=== PATIENT | female | born 1940 | race Caucasian/White ===

== ENCOUNTER 2020-12-15 06:00 | Outpatient (RCR) | payer MEDICARE, SELFPAY | END 2021-01-07 23:59 | disposition home or self-care (01) | LOC: MOT 06:00 | PROVIDERS: PCP Family Medicine; Referring Provider Orthopaedic Surgery Hand Surgery; Visit Provider Orthopaedic Surgery Hand Surgery | DX: M25.641 Stiffness of right hand, not elsewhere classified (principal) | CPT/HCPCS: 97018; 97110; 97140; 97166 ==

== ENCOUNTER 2021-01-08 06:00 | Outpatient (RCR) | payer MEDICARE, SELFPAY | END 2021-02-06 23:59 | disposition home or self-care (01) | LOC: MOT 06:00 | PROVIDERS: PCP Family Medicine; Referring Provider Orthopaedic Surgery Hand Surgery; Visit Provider Orthopaedic Surgery Hand Surgery | DX: M25.641 Stiffness of right hand, not elsewhere classified (principal) | CPT/HCPCS: 97018; 97110; 97140 ==

== ENCOUNTER 2022-08-19 06:00 | Outpatient (RCR) | payer MEDICARE, SELFPAY | END 2022-09-08 23:59 | disposition home or self-care (01) | LOC: MOT 06:00 | PROVIDERS: PCP Family Medicine; Visit Provider Physician Assistant | DX: M25.641 Stiffness of right hand, not elsewhere classified (principal) | CPT/HCPCS: 97110; 97140; 97166 ==

== ENCOUNTER 2022-09-09 06:00 | Outpatient (RCR) | payer MEDICARE, SELFPAY | END 2022-10-09 23:59 | disposition home or self-care (01) | LOC: MOT 06:00 | PROVIDERS: PCP Family Medicine; Visit Provider Physician Assistant | DX: M25.641 Stiffness of right hand, not elsewhere classified (principal) | CPT/HCPCS: 97035; 97110; 97140 ==

== ENCOUNTER 2022-10-10 06:00 | Outpatient (RCR) | payer MEDICARE, SELFPAY | END 2022-11-09 23:59 | disposition home or self-care (01) | LOC: MOT 06:00 | PROVIDERS: PCP Family Medicine; Visit Provider Physician Assistant | DX: M25.641 Stiffness of right hand, not elsewhere classified (principal) | CPT/HCPCS: 97018; 97035; 97110; 97140 ==

== ENCOUNTER 2022-11-10 06:00 | Outpatient (RCR) | payer MEDICARE, SELFPAY | END 2022-12-07 23:59 | disposition home or self-care (01) | LOC: MOT 06:00 | PROVIDERS: PCP Family Medicine; Visit Provider Physician Assistant | DX: M20.011 Mallet finger of right finger(s) (principal) | CPT/HCPCS: 97035; 97110; 97140 ==

== ENCOUNTER 2022-12-08 06:00 | Outpatient (RCR) | payer MEDICARE, SELFPAY | END 2023-01-07 23:59 | disposition home or self-care (01) | LOC: MOT 06:00 | PROVIDERS: Visit Provider Family Medicine | DX: Z47.1 Aftercare following joint replacement surgery (principal); Z96.642 Presence of left artificial hip joint | CPT/HCPCS: 97110; 97140; 97166 ==

== ENCOUNTER 2022-12-22 06:00 | Outpatient (RCR) | payer MEDICARE, SELFPAY | END 2023-01-07 23:59 | disposition home or self-care (01) | LOC: MPT 06:00 | PROVIDERS: Visit Provider Physician Assistant | DX: Z96.642 Presence of left artificial hip joint (principal) | CPT/HCPCS: 97110; 97116; 97162 ==

== ENCOUNTER 2023-01-08 06:00 | Outpatient (RCR) | payer MEDICARE, SELFPAY | END 2023-02-06 23:59 | disposition home or self-care (01) | LOC: MOT 06:00 | PROVIDERS: Visit Provider Family Medicine | DX: M19.011 Primary osteoarthritis, right shoulder (principal) | CPT/HCPCS: 97035; 97110; 97140 ==

== ENCOUNTER 2023-01-08 06:00 | Outpatient (RCR) | payer MEDICARE, SELFPAY | END 2023-02-06 23:59 | disposition home or self-care (01) | LOC: MPT 06:00 | PROVIDERS: Visit Provider Physician Assistant | DX: Z47.89 Encounter for other orthopedic aftercare (principal) | CPT/HCPCS: 97110; 97112 ==

== ENCOUNTER 2023-01-13 13:02 | Outpatient (RCR) | payer MEDICARE, SELFPAY | END 2023-02-06 23:59 | disposition home or self-care (01) | LOC: SST 13:02 | PROVIDERS: Visit Provider Otolaryngology | DX: R49.0 Dysphonia (principal) | CPT/HCPCS: 92524; 92610 ==

== ENCOUNTER 2023-02-07 06:00 | Outpatient (RCR) | payer MEDICARE, SELFPAY | END 2023-03-09 23:59 | disposition home or self-care (01) | LOC: SST 06:00 | PROVIDERS: Visit Provider Otolaryngology | DX: R49.0 Dysphonia (principal) | CPT/HCPCS: 92507 ==

== ENCOUNTER 2023-03-10 06:00 | Outpatient (RCR) | payer MEDICARE, SELFPAY | END 2023-03-10 23:59 | disposition home or self-care (01) | LOC: SST 06:00 | PROVIDERS: Visit Provider Otolaryngology | DX: R49.0 Dysphonia (principal) | CPT/HCPCS: 92507 ==

== ENCOUNTER → 2023-06-14 10:00 | Outpatient (BNVA) | payer MEDICARE, SELFPAY | PROVIDERS: PCP Family Medicine; Visit Provider Nurse Practitioner Family | DX: R07.81 Pleurodynia (principal) | CPT/HCPCS: 71100 ==

== ENCOUNTER → 2023-12-08 18:04 | Outpatient (BNVA) | payer MEDICARE, SELFPAY | PROVIDERS: PCP Family Medicine; Visit Provider Emergency Medicine | DX: R10.9 Unspecified abdominal pain (principal) | CPT/HCPCS: 81000; 87077; 87086; 87184 ==

== ENCOUNTER 2024-02-28 06:00 | Outpatient (RCR) | payer MEDICARE, SELFPAY | END 2024-03-09 23:59 | disposition home or self-care (01) | LOC: MPT 06:00 | PROVIDERS: Visit Provider Physician Assistant Medical | DX: M25.552 Pain in left hip (principal) | CPT/HCPCS: 97110; 97162 ==

== ENCOUNTER 2024-03-10 06:00 | Outpatient (RCR) | payer MEDICARE, SELFPAY | END 2024-04-08 23:59 | disposition home or self-care (01) | LOC: MPT 06:00 | PROVIDERS: Visit Provider Physician Assistant Medical | DX: M25.552 Pain in left hip (principal) | CPT/HCPCS: 97110; 97116 ==

== ENCOUNTER → 2025-03-18 13:35 | Outpatient (BNVA) | payer MEDICARE, SELFPAY | PROVIDERS: PCP Family Medicine; Visit Provider Podiatrist Foot & Ankle Surgery | DX: M76.62 Achilles tendinitis, left leg (principal) | CPT/HCPCS: 99203 ==